=== PATIENT | male | born 1960 | race Caucasian/White ===

== ENCOUNTER → 2021-03-04 | Outpatient (CLI) | payer OTHER | LOC: LAB SHORT 13:00 | DX: R10.11 Right upper quadrant pain (principal); R10.31 Right lower quadrant pain; R19.4 Change in bowel habit | CPT/HCPCS: 87015; 87045; 87046; 87205; 87338; 87899 ==

== ENCOUNTER 2021-04-18 07:49 | Day surgery (SDC) | payer OTHER ==
[~2021-04-18] VITALS: Ht 434.3 cm; Wt 95.1 kg
[2021-04-18] MEDS ORDERED: TAMS.4ER (07:57)
[2021-04-18] MEDS ORDERED: Amlodipine Bes2.5 MG (08:05)
--- NOTE | 2021-04-18 09:35 | NUR ---
04/18/21 0935 Cora Lentz SIMETHICONE USED DURING PROCEDURE.
== END 2021-04-18 10:35 | disposition home or self-care (01) ==
LOC: ORSCSDS 07:49
PROVIDERS: Student in an Organized Health Care Education/Training Program
PROC: 0DBE8ZX Excision of Large Intestine, Via Natural or Artificial Opening Endoscopic, Diagnostic (ICD-10-PCS; principal; 2021-04-18 09:00)
PROC: 0DB98ZX Excision of Duodenum, Via Natural or Artificial Opening Endoscopic, Diagnostic (ICD-10-PCS; principal; 2021-04-18 09:00)
PROC: 0DBN8ZX Excision of Sigmoid Colon, Via Natural or Artificial Opening Endoscopic, Diagnostic (ICD-10-PCS; principal; 2021-04-18 09:00)
PROC: 0DBK8ZX Excision of Ascending Colon, Via Natural or Artificial Opening Endoscopic, Diagnostic (ICD-10-PCS; principal; 2021-04-18 09:00)
PROC: 0DB78ZX Excision of Stomach, Pylorus, Via Natural or Artificial Opening Endoscopic, Diagnostic (ICD-10-PCS; principal; 2021-04-18 09:00)
PROC: 0DBH8ZX Excision of Cecum, Via Natural or Artificial Opening Endoscopic, Diagnostic (ICD-10-PCS; principal; 2021-04-18 09:00)
DX: R19.4 Change in bowel habit (principal); D12.0 Benign neoplasm of cecum; D12.2 Benign neoplasm of ascending colon; D12.5 Benign neoplasm of sigmoid colon; R14.0 Abdominal distension (gaseous); K29.80 Duodenitis without bleeding; K31.7 Polyp of stomach and duodenum; I10 Essential (primary) hypertension; Z79.899 Other long term (current) drug therapy
CPT/HCPCS: 88305; 88342; J2704; J7120

== ENCOUNTER → 2023-04-16 | Outpatient (CLI) | payer SELFPAY ==
[~2023-04-16] MED LIST: Amlodipine Bes2.5 MG; TAMS.4ER
== END ==
LOC: LAB 12:07 → LAB SHORT 12:07
DX: L82.1 Other seborrheic keratosis (principal)
CPT/HCPCS: 88304; 88305